=== PATIENT | female | born 1950 | race Hispanic/Latino ===

== ENCOUNTER 2019-02-16 08:50 | Day surgery (SDC) | payer MEDICARE, OTHER ==
[~2019-02-16 08:50] MED LIST: BETIMOL0.51 OU; LORATADINE10 M1 PO; NORVASC2.5 M1 PO
[2019-02-16 11:05] VITALS: BP 133/78
== END 2019-02-16 11:10 | disposition home or self-care (01) ==
LOC: ENDO 08:50 → ORM 11:25
PROVIDERS: ATTEND Internal Medicine Gastroenterology
PROC: 0DJD8ZZ Inspection of Lower Intestinal Tract, Via Natural or Artificial Opening Endoscopic (ICD-10-PCS; principal; 2019-02-16)
DX: Z12.11 Encounter for screening for malignant neoplasm of colon (principal); K57.30 Diverticulosis of large intestine without perforation or abscess without bleeding; K64.8 Other hemorrhoids; K64.4 Residual hemorrhoidal skin tags; K21.9 Gastro-esophageal reflux disease without esophagitis; I10 Essential (primary) hypertension; Z86.010 Personal history of colon polyps